=== PATIENT | female | born 1995 | race Caucasian/White ===

== ENCOUNTER → 2017-11-03 | Outpatient (CLI) | payer OTHER ==
[~2017-11-03] MED LIST: AMOXICILLIN500 MG PO; BIRTH CONTROL1 EAC1 PO; FLONASE 0.05% 121 EA NAS; IBUPROFEN600 MG PO; IRON325 M1 PO; MACROBID100 M1 PO; MAGNESIUM27 MG PO; PRENATAL1 TA2 PO; PROTONIX40 MG PO; TRAMADOL HCL50 MG PO; ZYRTEC10 MG PO
== END | disposition home or self-care (01) ==
LOC: US 15:00
DX: Z33.1 Pregnant state, incidental (principal); Z3A.10 10 weeks gestation of pregnancy

== ENCOUNTER 2018-08-05 20:38 | Emergency (ER) | payer OTHER ==
[~2018-08-05] VITALS: Ht 165.1 cm; Wt 81.6 kg
[2018-08-05 20:39] VITALS: BP 130/58
[2018-08-05] MEDS ORDERED: AMOXICILLIN500 M2 PO (21:48)
[2018-08-05] MEDS ORDERED: ZOFRAN4 MG PO (21:48)
== END 2018-08-05 22:00 | disposition home or self-care (01) ==
LOC: ED 20:38
DX: J02.0 Streptococcal pharyngitis (principal); Z79.899 Other long term (current) drug therapy

== ENCOUNTER 2018-12-30 15:11 | Emergency (ER) | payer SELFPAY ==
[~2018-12-30] VITALS: Ht 165.1 cm; Wt 90.7 kg
[~2018-12-30 15:11] MED LIST changes: +AMOXICILLIN500 M2 PO; +ZOFRAN4 MG PO
[2018-12-30 15:14] VITALS: BP 113/74
[2018-12-30] MEDS ORDERED: AMOXICILLIN500 M2 PO (16:28)
== END 2018-12-30 16:33 | disposition home or self-care (01) ==
LOC: ED 15:11
DX: J02.9 Acute pharyngitis, unspecified (principal)

== ENCOUNTER 2019-03-01 20:24 | Emergency (ER) | payer OTHER ==
[~2019-03-01] VITALS: Ht 165.1 cm; Wt 81.6 kg
[2019-03-01 20:26] VITALS: BP 141/74
[2019-03-01 20:58] LABS: BILIRUBIN NEGATIVE (NEGATIVE); BLOOD 1+ (NEGATIVE); CLARITY CLEAR (CLEAR); COLOR YELLOW (YELLOW); GLUCOSE NEGATIVE (NEGATIVE); KETONE NEGATIVE (NEGATIVE); LEUKO ESTERASE NEGATIVE (NEGATIVE); NITRITE NEGATIVE (NEGATIVE); SPECIFIC GRAVITY <= 1.005 (1.005-1.030); UROBILINOGEN 0.2 E.U./dl (0.2-1.0)
[2019-03-01 21:03] LABS: BACTERIA TRACE; WBC 0-2 wbc/hpf (0-5)
[2019-03-01 21:25] LABS: BASO % 0.4 % (0.0-1.0); EOS # 0.1 10*3/uL (0.0-0.4); EOS % 0.9 % (1.0-4.0); HEMATOCRIT 37.7 % (37.0-47.0); LYMPH # 3.6 10*3/uL (1.3-4.4); LYMPH % 42.9 % (27.0-41.0); MEAN CELL VOLUME 90.2 fl (81.0-99.0); MEAN CORPUSCULAR HGB 28.7 pg (27.0-31.0); MEAN CORPUSCULAR HGB CONC 31.8 g/dl (33.0-37.0); MEAN PLATELET VOLUME 10.2 fl (9.6-12.3); MONO # 0.6 10*3/uL (0.1-1.0); MONO % 6.8 % (3.0-9.0); NEUT # 4.1 10*3/uL (2.3-7.9); NEUT % 48.8 % (47.0-73.0); PLATELET COUNT AUTOMATED 322 10*3/uL (130-400); RED BLOOD COUNT 4.18 10*6/uL (4.10-5.10); RED CELL DISTRI WIDTH 12.3 % (0-14.5); WHITE BLOOD COUNT 8.4 10*3/uL (4.8-10.8)
== END 2019-03-01 21:55 | disposition home or self-care (01) ==
LOC: ED 20:24
PROVIDERS: Emergency Medicine
DX: N93.8 Other specified abnormal uterine and vaginal bleeding (principal); Z32.02 Encounter for pregnancy test, result negative; Z79.2 Long term (current) use of antibiotics

== ENCOUNTER 2019-10-29 17:17 | Emergency (ER) | payer OTHER ==
[~2019-10-29] VITALS: Ht 165.1 cm; Wt 90.7 kg
[2019-10-29 17:26] VITALS: BP 111/55
[2019-10-29 19:13] LABS: BILIRUBIN NEGATIVE (NEGATIVE); BLOOD 3+ (NEGATIVE); CLARITY TURBID (CLEAR); COLOR YELLOW (YELLOW); GLUCOSE NEGATIVE (NEGATIVE); KETONE NEGATIVE (NEGATIVE)
[2019-10-29 19:14] LABS: BACTERIA 1+; EPITHELIAL CELLS TNTC; LEUKO ESTERASE 2+ (NEGATIVE); NITRITE NEGATIVE (NEGATIVE); UROBILINOGEN 0.2 E.U./dl (0.2-1.0)
[2019-10-29] MEDS ORDERED: AMINOPHYLLIN200 MG PO (19:28)
== END 2019-10-29 19:35 | disposition home or self-care (01) ==
LOC: ED 17:17
PROVIDERS: Physician Assistant
DX: O20.9 Hemorrhage in early pregnancy, unspecified (principal); Z3A.08 8 weeks gestation of pregnancy; Z79.899 Other long term (current) drug therapy

== ENCOUNTER → 2020-01-25 | Outpatient (CLI) | payer OTHER ==
[~2020-01-25] MED LIST changes: +AMINOPHYLLIN200 MG PO
== END | disposition home or self-care (01) ==
LOC: LAB 00:36
PROVIDERS: ATTEND Nurse Practitioner Women's Health
DX: O99.810 Abnormal glucose complicating pregnancy (principal); Z3A.16 16 weeks gestation of pregnancy

== ENCOUNTER → 2020-03-21 | Outpatient (CLI) | payer OTHER | END | disposition home or self-care (01) | LOC: LAB 00:29 | PROVIDERS: ATTEND Nurse Practitioner Women's Health | DX: Z34.82 Encounter for supervision of other normal pregnancy, second trimester (principal); Z3A.25 25 weeks gestation of pregnancy ==

== ENCOUNTER 2021-02-02 08:21 | Emergency (ER) | payer OTHER ==
[~2021-02-02] VITALS: Ht 165.1 cm; Wt 92.1 kg
[2021-02-02 08:35] VITALS: BP 102/58
== END 2021-02-02 10:23 | disposition home or self-care (01) ==
LOC: ED 08:21
DX: U07.1 COVID-19 (principal); Z79.899 Other long term (current) drug therapy

== ENCOUNTER 2021-09-19 15:19 | Emergency (ER) | payer OTHER ==
[~2021-09-19] VITALS: Ht 165.1 cm; Wt 90.7 kg
[2021-09-19 15:33] VITALS: BP 103/65
[2021-09-19] MEDS ORDERED: AUGMENTIN 875-875 MG PO ×2 (16:45)
[2021-09-19] MEDS ORDERED: PREDNISONE20 M1 PO ×2 (16:45)
== END 2021-09-19 17:06 | disposition home or self-care (01) ==
LOC: ED 15:19
DX: J02.0 Streptococcal pharyngitis (principal); Z79.899 Other long term (current) drug therapy

== ENCOUNTER 2021-09-29 02:59 | Inpatient (IN) | payer OTHER ==
[2021-09-29] VITALS (7 sets, daily range): BP systolic 108–129; BP diastolic 66–88
[~2021-09-29] VITALS: Ht 165.1 cm; Wt 100.7 kg
[~2021-09-29 02:59] MED LIST changes: +AUGMENTIN 875-875 MG PO; +PREDNISONE20 M1 PO
[2021-09-29 03:57] LABS: BILIRUBIN Negative (Negative); BLOOD Trace-Lysed (Negative); CLARITY Clear (Clear); COLOR Yellow (Yellow); GLUCOSE Negative (Negative); KETONE Negative (Negative); LEUKO ESTERASE Negative (Negative); NITRITE Negative (Negative)
[2021-09-29 04:02] LABS: BASO % 0.3 % (0.0-1.0); EOS # 0.1 10*3/uL (0.0-0.4); EOS % 0.7 % (1.0-4.0); HEMATOCRIT 41.9 % (37.0-47.0); LYMPH # 4.8 10*3/uL (1.3-4.4); LYMPH % 50.5 % (27.0-41.0); MEAN CELL VOLUME 88.6 fl (81.0-99.0); MEAN CORPUSCULAR HGB 28.3 pg (27.0-31.0); MEAN PLATELET VOLUME 9.6 fl (9.6-12.3); MONO # 0.4 10*3/uL (0.1-1.0); MONO % 4.7 % (3.0-9.0); NEUT # 4.1 10*3/uL (2.3-7.9); NEUT % 43.1 % (47.0-73.0); PLATELET COUNT AUTOMATED 404 10*3/uL (130-400); RED BLOOD COUNT 4.73 10*6/uL (4.10-5.10); WHITE BLOOD COUNT 9.5 10*3/uL (4.8-10.8)
[2021-09-29 04:05] LABS: URINE AMPHETAMINES < 1000 (1000ng/ml); URINE BARBITURATES < 200 (200ng/ml); URINE BENZODIAZEPINES < 200 (200ng/ml); URINE CANNABINOIDS (THC) > 50 (50ng/ml); URINE COCAINE < 300 (300ng/ml); URINE METHADONE < 300 (300ng/ml); URINE OPIATES < 300 (300ng/ml)
[2021-09-29 04:26] LABS: URINE PHENCYCLIDINE < 25 (25ng/ml)
[2021-09-29 04:45] LABS: BACTERIA TRACE
[2021-09-29 04:52] LABS: ALKALINE PHOSPHATASE 70 U/L (45-117); BUN 15 mg/dl (7-24); CHLORIDE 101 mmol/L (98-107); CREATININE 0.82 mg/dL (0.55-1.02); POTASSIUM 3.6 mmol/L (3.5-5.1); SGOT/AST 12 IU/L (3-35); SGPT/ALT 24 U/L (12-78); SODIUM 137 mmol/L (136-145); TOTAL PROTEIN 8.4 gm/dL (6.4-8.2)
[2021-09-30] VITALS: BP 120/74
[2021-09-30 05:31] LABS: ALKALINE PHOSPHATASE 67 U/L (45-117); BUN 10 mg/dl (7-24); CHLORIDE 104 mmol/L (98-107); CREATININE 0.69 mg/dL (0.55-1.02); POTASSIUM 4.2 mmol/L (3.5-5.1); SGOT/AST 12 IU/L (3-35); SGPT/ALT 23 U/L (12-78); SODIUM 138 mmol/L (136-145); TOTAL PROTEIN 7.5 gm/dL (6.4-8.2)
[2021-09-30 06:08] LABS: BASO % 0.2 % (0.0-1.0); EOS # 0.1 10*3/uL (0.0-0.4); EOS % 1.6 % (1.0-4.0); HEMATOCRIT 39.9 % (37.0-47.0); LYMPH # 2.1 10*3/uL (1.3-4.4); LYMPH % 23.3 % (27.0-41.0); MEAN CELL VOLUME 88.9 fl (81.0-99.0); MEAN CORPUSCULAR HGB 28.1 pg (27.0-31.0); MEAN CORPUSCULAR HGB CONC 31.6 g/dl (33.0-37.0); MEAN PLATELET VOLUME 9.6 fl (9.6-12.3); MONO # 0.6 10*3/uL (0.1-1.0); MONO % 6.5 % (3.0-9.0); NEUT % 68.1 % (47.0-73.0); PLATELET COUNT AUTOMATED 330 10*3/uL (130-400); RED BLOOD COUNT 4.49 10*6/uL (4.10-5.10); RED CELL DISTRI WIDTH 13.4 % (0-14.5); WHITE BLOOD COUNT 8.8 10*3/uL (4.8-10.8)
[2021-09-30 08:00] VITALS: BP 117/77
[2021-09-30 12:00] VITALS: BP 129/72
[2021-09-30 16:00] VITALS: BP 121/73
[2021-09-30 20:00] VITALS: BP 133/83
[2021-10-01] VITALS: BP 128/78
[2021-10-01 06:00] LABS: ALKALINE PHOSPHATASE 74 U/L (45-117); BUN 12 mg/dl (7-24); CHLORIDE 102 mmol/L (98-107); CREATININE 0.65 mg/dL (0.55-1.02); POTASSIUM 3.9 mmol/L (3.5-5.1); SGOT/AST 14 IU/L (3-35); SGPT/ALT 27 U/L (12-78); SODIUM 136 mmol/L (136-145); TOTAL PROTEIN 7.9 gm/dL (6.4-8.2)
[2021-10-01 06:14] LABS: BASO % 0.2 % (0.0-1.0); EOS # 0.2 10*3/uL (0.0-0.4); EOS % 2.1 % (1.0-4.0); HEMATOCRIT 40.6 % (37.0-47.0); LYMPH # 2.4 10*3/uL (1.3-4.4); LYMPH % 28.2 % (27.0-41.0); MEAN CELL VOLUME 88.3 fl (81.0-99.0); MEAN CORPUSCULAR HGB 28.3 pg (27.0-31.0); MEAN PLATELET VOLUME 9.7 fl (9.6-12.3); MONO # 0.5 10*3/uL (0.1-1.0); MONO % 6.2 % (3.0-9.0); NEUT # 5.3 10*3/uL (2.3-7.9); NEUT % 62.6 % (47.0-73.0); PLATELET COUNT AUTOMATED 342 10*3/uL (130-400); RED CELL DISTRI WIDTH 13.2 % (0-14.5); WHITE BLOOD COUNT 8.5 10*3/uL (4.8-10.8)
[2021-10-01 08:00] VITALS: BP 129/83
[2021-10-01 12:00] VITALS: BP 116/68
[2021-10-01] MEDS ORDERED: CYCLOBENZAPRINE10 MG PO (14:07)
[2021-10-01] MEDS ORDERED: HYDROCODONE-AC1 EAC1 PO (14:07)
[2021-10-01] MEDS ORDERED: ZOFRAN4 MG PO (14:07)
[2021-10-01] MEDS ORDERED: AUGMENTIN 875-875 MG PO (14:08)
[2021-10-01] MEDS ORDERED: Motrin,Rufen800 MG PO (14:09)
== END 2021-10-01 15:55 | disposition home or self-care (01) | DRG 153 ==
LOC: ED 02:59 → EDHOLD 09:27 → 4E 09:27 → EDHOLD 09:33 → 4E 09:59
PROVIDERS: Emergency Medicine; Internal Medicine; Physical Therapist; ADMIT Emergency Medicine; ATTEND Emergency Medicine
DX: J03.90 Acute tonsillitis, unspecified (principal); D75.839 Thrombocytosis, unspecified; R52 Pain, unspecified; R11.0 Nausea; R79.82 Elevated C-reactive protein (CRP); Z78.9 Other specified health status

== ENCOUNTER 2022-08-10 19:49 | Emergency (ER) | payer OTHER ==
[~2022-08-10] VITALS: Ht 167.6 cm; Wt 90.7 kg
[~2022-08-10 19:49] MED LIST changes: +CYCLOBENZAPRINE10 MG PO; +HYDROCODONE-AC1 EAC1 PO; +Motrin,Rufen800 MG PO
[2022-08-10] MEDS ORDERED: AMOX-CLAV 875-1 EACH PO (22:14)
[2022-08-10] MEDS ORDERED: IBUPROFEN600 MG PO (22:14)
== END 2022-08-10 22:40 | disposition home or self-care (01) ==
LOC: ED 19:49
DX: J02.9 Acute pharyngitis, unspecified (principal); Z98.890 Other specified postprocedural states

== ENCOUNTER 2022-08-20 08:48 | Emergency (ER) | payer OTHER ==
[~2022-08-20] VITALS: Ht 165.1 cm; Wt 104.3 kg
[~2022-08-20 08:48] MED LIST changes: +AMOX-CLAV 875-1 EACH PO
[2022-08-20 09:05] VITALS: BP 126/81
[2022-08-20] MEDS ORDERED: PREDNISONE10 MG PO (09:53)
[2022-08-20] MEDS ORDERED: CEFDINIR300 MG PO (09:53)
== END 2022-08-20 10:08 | disposition home or self-care (01) ==
LOC: ED 08:48
DX: J02.9 Acute pharyngitis, unspecified (principal); Z98.890 Other specified postprocedural states

== ENCOUNTER 2022-11-01 10:10 | Emergency (ER) | payer SELFPAY ==
[~2022-11-01] VITALS: Ht 165.1 cm; Wt 95.3 kg
[~2022-11-01 10:10] MED LIST changes: +CEFDINIR300 MG PO; +PREDNISONE10 MG PO
[2022-11-01 10:17] VITALS: BP 107/66
[2022-11-01] MEDS ORDERED: CIPRO500 MG PO (10:34)
[2022-11-01] MEDS ORDERED: ONDANSETRON4 MG SL (10:34)
== END 2022-11-01 10:38 | disposition home or self-care (01) ==
LOC: ED 10:10
DX: R11.2 Nausea with vomiting, unspecified (principal); R19.7 Diarrhea, unspecified; Z98.890 Other specified postprocedural states

== ENCOUNTER 2023-05-12 18:23 | Emergency (ER) | payer SELFPAY ==
[~2023-05-12] VITALS: Ht 165.1 cm; Wt 99.8 kg
[~2023-05-12 18:23] MED LIST changes: +CIPRO500 MG PO; +OCUFLOX 0.3% 5 M5 ML OPH; +ONDANSETRON4 MG SL
[2023-05-12 18:32] VITALS: BP 108/42
[2023-05-12] MEDS ORDERED: AMOX-CLAV 875-1 EACH PO (21:14)
== END 2023-05-12 21:19 | disposition home or self-care (01) ==
LOC: ED 18:23
DX: J40 Bronchitis, not specified as acute or chronic (principal); Z98.890 Other specified postprocedural states; F17.210 Nicotine dependence, cigarettes, uncomplicated; Z20.822 Contact with and (suspected) exposure to COVID-19

== ENCOUNTER 2023-07-20 13:02 | Emergency (ER) | payer BC ==
[~2023-07-20] VITALS: Ht 165.1 cm; Wt 99.8 kg
[2023-07-20] MEDS ORDERED: Ketorolac Tromethamine 30 MG/ML VIAL IV ONE (13:30)
[2023-07-20] MEDS ORDERED: SODIUM CHLORIDE 0.9% 1,000 ML IV SCH (13:30)
[2023-07-20 13:46] LABS: BASO % 0.1 % (0.0-1.0); EOS # 0.1 10*3/uL (0.0-0.4); EOS % 0.3 % (1.0-4.0); HEMATOCRIT 37.1 % (37.0-47.0); LYMPH % 6.1 % (27.0-41.0); MEAN CELL VOLUME 84.7 fl (81.0-99.0); MEAN CORPUSCULAR HGB 26.7 pg (27.0-31.0); MEAN CORPUSCULAR HGB CONC 31.5 g/dl (33.0-37.0); MEAN PLATELET VOLUME 9.8 fl (9.6-12.3); MONO # 0.5 10*3/uL (0.1-1.0); MONO % 3.3 % (3.0-9.0); NEUT # 14.2 10*3/uL (2.3-7.9); NEUT % 89.7 % (47.0-73.0); PLATELET COUNT AUTOMATED 338 10*3/uL (130-400); RED BLOOD COUNT 4.38 10*6/uL (4.10-5.10); RED CELL DISTRI WIDTH 13.3 % (0-14.5); WHITE BLOOD COUNT 15.8 10*3/uL (4.8-10.8)
[2023-07-20] MEDS ORDERED: Ondansetron Hydrochloride 4 MG/2 ML VIAL IV ONE (13:55)
[2023-07-20 14:14] LABS: BUN 12 mg/dl (9-23); CHLORIDE 100 mmol/L (98-107); POTASSIUM 3.8 mmol/L (3.4-5.1)
[2023-07-20] MEDS ORDERED: CLINDAMYCIN HC300 MG PO (16:11)
[2023-07-20] MEDS ORDERED: methylPREDNISolone sod succ 125 MG VIAL IV ONE (16:15)
[2023-07-20] MEDS ORDERED: CLINDAMYCIN HCL 300 MG CAPSULE PO ONE (16:15)
[2023-07-20 16:30] VITALS: BP 109/62
== END 2023-07-20 16:43 | disposition home or self-care (01) ==
LOC: ED 13:02
PROVIDERS: Nurse Practitioner Family
DX: B27.90 Infectious mononucleosis, unspecified without complication (principal); J02.0 Streptococcal pharyngitis; Z98.890 Other specified postprocedural states

== ENCOUNTER 2024-04-23 16:28 | Emergency (ER) | payer BC ==
[~2024-04-23] VITALS: Ht 165.1 cm; Wt 102.1 kg
[~2024-04-23 16:28] MED LIST changes: +CLINDAMYCIN HC300 MG PO
[2024-04-23 16:36] VITALS: BP 114/72
[2024-04-23] MEDS ORDERED: AMOX-CLAV 875-1 EACH PO (16:52)
[2024-04-23] MEDS ORDERED: Amoxicillin/Clavulanate Pota 875 MG TAB PO ONE (16:55)
== END 2024-04-23 17:04 | disposition home or self-care (01) ==
LOC: ED 16:28
DX: J02.0 Streptococcal pharyngitis (principal); Z98.890 Other specified postprocedural states

== ENCOUNTER 2024-08-02 06:53 | Emergency (ER) | payer BC ==
[~2024-08-02] VITALS: Ht 165.1 cm; Wt 99.8 kg
[2024-08-02 07:06] VITALS: BP 115/63
[2024-08-02] MEDS ORDERED: AMOX-CLAV 875-1 EACH PO (07:35)
== END 2024-08-02 07:30 | disposition home or self-care (01) ==
LOC: ED 06:53
DX: J02.0 Streptococcal pharyngitis (principal); Z98.890 Other specified postprocedural states

== ENCOUNTER 2024-12-26 20:34 | Emergency (ER) | payer BC ==
[2024-12-26 20:43] VITALS: BP 122/76
[2024-12-26] MEDS ORDERED: AMOXICILLIN 875 MG TAB PO ONE (22:25)
[2024-12-26] MEDS ORDERED: AMOXICILLIN500 M2 PO (22:30)
== END 2024-12-26 22:41 | disposition home or self-care (01) ==
LOC: ED 20:34
DX: O98.511 Other viral diseases complicating pregnancy, first trimester (principal); J02.0 Streptococcal pharyngitis; Z98.890 Other specified postprocedural states; Z88.1 Allergy status to other antibiotic agents; Z3A.08 8 weeks gestation of pregnancy